=== PATIENT | female | born 1945 | race Caucasian/White ===

== ENCOUNTER 2016-07-14 06:45 | Inpatient (IN) | payer MEDICARE, OTHER ==
[~2016-07-14] VITALS: Ht 157.5 cm; Wt 65.9 kg
[2016-07-14] MEDS ORDERED: IBUP400T22 PO (08:58)
[2016-07-14] MEDS ORDERED: NAPR220C11 PO (08:58)
[2016-07-14 08:59] VITALS: PULSE 66
[2016-07-14 09:08] VITALS: BP 151/77; PULSE 62; RESP 20; O2SAT 98
[2016-07-14] MEDS ORDERED: ATOR20TA65 PO (09:20)
[2016-07-14 10:16] VITALS: PULSE 63
[2016-07-14] MEDS ORDERED: 0.9% Sodium Chloride 1,000 ML IV SCH (10:17)
[2016-07-14] MEDS ORDERED: Polyethylene Glycol (PEG) 17 Gm Powder PO PRN (10:20)
[2016-07-14] MEDS ORDERED: Ondansetron 2 mg/mL 2 mL Inj IVPUSH PRN (10:20)
[2016-07-14] MEDS ORDERED: Atropine 1 mg/10 mL (Code) Syringe IVPUSH PRN (10:20)
[2016-07-14] MEDS ORDERED: Alum-Mag Hydrox-Simeth 30 mL Suspension PO PRN (10:20)
[2016-07-14] MEDS ORDERED: Senna-Docusate 8.6-50 mg Tablet PO PRN (10:20)
[2016-07-14] MEDS ORDERED: Heparin 25K Unit/500mL 0.45 NS 25,000 UNIT in IV Premix 1 EACH IV SCH (11:05)
[2016-07-14] MEDS ORDERED: Heparin 5,000 Unit/mL Inj IVPUSH PRN (11:05)
[2016-07-14 12:00] VITALS: BP 151/77; PULSE 55; RESP 16; O2SAT 97
--- NOTE | 2016-07-14 13:21 | CONS ---
[address] [address] CONSULTATION REPORT PATIENT: JULIO ALBERTO : 1945 MR#: [id number] ADMIT: 07/14/2016 JOB ID: [id number] DATE OF SERVICE: 07/14/2016 CHIEF COMPLAINT: Chest pain. HISTORY OF PRESENT ILLNESS: The patient is a delightful, 70-year-old woman with hyperlipidemia, previous medical management. Unfortunately, she stopped her lipid-lowering medications two weeks ago. In hindsight, for the past year, she has been having exertional chest pressure that lasts a few minutes and is better at rest. She only noticed it when she was climbing hills. Yesterday evening she had discomfort like that all night. It radiated to her back and was associated with nausea. She reported to [facility] emergency department. She had mildly elevated troponin I at 0.[address] depressions that were downsloping in lead V5 and V6 and now was transferred to [facility] for consideration of cardiac catheterization. Cardiology is consulted to assist with management. PAST MEDICAL HISTORY: Hyperlipidemia, currently off medical therapy. SOCIAL HISTORY: The patient does not smoke. She is accompanied today by her children, Emili, Mita, Lily and Stacie. She is physically active. She avoids deep fried foods. She does not smoke. FAMILY HISTORY: Significant for multiple family members with coronary artery disease. ALLERGIES: PENICILLIN. MEDICATIONS: None. REVIEW OF SYSTEMS: No bright red blood per rectum. No hematuria. Chest pain as outlined above. PHYSICAL EXAMINATION: Temperature 36.1, blood pressure 161/77, pulse 62 beats per minute, satting 98% on room air. Well-nourished woman in no apparent distress. Eyes: No scleral icterus. Neck: Supple. No lymphadenopathy. No carotid bruits. Heart: Normal S1, S2. No murmurs, rubs, or gallops. Lungs clear to auscultation. Abdomen: Soft, positive bowel sounds. No hepatosplenomegaly. Skin: Warm, well perfused. No clubbing, cyanosis, or edema. Skin: No rashes or lesions. EKG from [facility] with downsloping ST depressions. Chest x-ray on personal review is normal. Labs at [facility] are pending. CBC and basic metabolic panel at [place] were normal. ASSESSMENT AND PLAN: In summary, this is a delightful woman with chest pain, I suspect coronary artery disease. She has elevated troponin and abnormal EKG. The plan for this patient is to have serial troponins every 6-8 hours until it peaks. Obtain echocardiogram and schedule for her cardiac catheterization. Right now, it does not sound like it is urgent, so will plan to do it on Saturday. Thank you very much for the opportunity to evaluate her. In the interim, will give her aspirin, Lipitor, and heparin drip. She was Plavix loaded at [place]. Thank you very much for the opportunity to participate in her care. LUI
--- NOTE | 2016-07-14 15:15 | DRSVH ---
[facility] [address] [place] [address] Echocardiogram Report Name: JULIO ALBERTO Skip e: 07/14/2016 Height: 62 in Hospital Exam Location: [facility] Weight: 145 lb Gender: Female BSA: 1.7 m2 : 1945 Age: 70 yrs BP: 151/77 mmHg Reason For Study: NSTEMI Ordering Physician: Performed By: Peggy Campuzano Referring Physician: Cande Parker Interpretation Summary Normal sinus rhythm. Normal LV size, wall thickness, wall motion and LV systolic function. EF is 60-65%. Stage I diastolic dysfunction. No valvular abnormalities. Compared to prior study 06/17/2013 no changes have occurred. Procedure: A two-dimensional transthoracic echocardiogram with color flow and Doppler was performed. The study quality was technically adequate. Comparison is made with the echocardiogram of 06/17/2013. The patient was in normal sinus rhythm during the exam. The heart rate ranged between 55-65 bpm during the study. Left Ventricle: The left ventricle is normal in size. There is normal left ventricular wall thickness. The ejection fraction is estimated to be 60-65%. Assessment of diastolic parameters indicates normal left ventricular diastolic function and normal filling pressures. Right Ventricle: The right ventricle is normal in size and function. Atria: The left atrial size is normal. Right atrial size is normal. The interatrial septum is intact with no evidence for an atrial septal defect. Mitral Valve: The mitral valve is normal in structure and function. There is trace mitral regurgitation. Aortic Valve: The aortic valve is normal in structure and function. No aortic regurgitation is present. Tricuspid Valve: The tricuspid valve is normal in structure and function. No tricuspid regurgitation. Pulmonic Valve: The pulmonic valve is not well visualized. There is a trace or physiologic amount of pulmonic regurgitation. Great Vessels: The aortic root is normal size. The dimensions of the ascending aorta are normal. The aortic arch is normal in size. The IVC is of normal diameter and collapses greater than 50% with a sniff. This suggests a low right atrial pressure of 3 mm Hg. Pericardium/ Pleura There is no pericardial effusion. There is no pleural effusion. MMode/2D Measurements & Calculations LVIDd: 3.9 cm LA dimension: 2.9 cm RA long axis LVOT diam: 2.0 cm LVIDs: 2.6 cm Ao root diam FS: 32.7 % LA A2 area: 13.4 cm RA area EPSS: 0.13 cm LA A4 area: 15.1 cm Aortic Jxn: 2.4 cm IVSd: 1.1 cm LA length (vol) : 12.0 cm asc Aorta Diam LVPWd: 0.92 cm RA vol LA vol: 33.6 ml : 29.9 ml Ao Arch Diam (Prox LA vol index RA Trans): 2.5 cm : 17.9 mm2 IVC diam: 0.92 cm LV llamas. diameter/BSA LV sys. diameter/BSA RVD1 (basal) RVD2 (mid): 2.1 cm (cm/m^2): 2.3 (cm/m^2): 1.6 Doppler Measurements & Calculations Ao V2 max MV E max orion MV E/A: 0.95 PA V2 max : 126.1 cm/sec : 73.6 cm/sec Med Peak E' Orion : 74.0 cm/sec Ao max PG MV A max orion PA mean PG : 6.4 mmHg : 77.3 cm/sec E/E' med: 8.2 Ao mean PG MV P1/2t: 72.7 msec Lat Peak E' Orion PA Accel Time : 0.11 sec LVOT Max Orion E/E' lat: 7.6 : 95.7 cm/sec E/e' average: 7.9 DARYL(I,D): 2.3 cm sev ratio MV dec time MV P1/2t max orion Ao V2 mean LV V1 max PG : 0.25 sec : 86.7 cm/sec MVA(P1/2t): 3.0 cm2 Ao V2 VTI: 28.1 cm LV V1 VTI DARYL(V,D): 2.3 cm2 : 21.3 cm PA V2 mean DARYL indexed to BSA : 51.9 cm/sec (cm^2/m^2): 1.4 Reading Physician:03:14 PM
[2016-07-14] MEDS: Sodium Chloride LOK Flush 10 mL Syringe IVFLUSH SCH (16:30)
--- NOTE | 2016-07-14 16:30 | PCM.HPMED ---
Subjective Date of Service July 14, 2016 Primary Provider: Admitting Physician: Juan Hoffman MD Primary Care Physician: Cande Dee LPN, at [facility] Attending Physician: Juan Hoffman MD Admit Status: Direct Admit ([facility]) Chief Complaint: Chest pain History of Present Illness: Becky Woo is an otherwise very healthy 70-year-old woman who presented yesterday to [facility] in [place] with chest pain that it started 9 PM the night before lasted all night with nausea. She describes the pain as an aching in the lower part of her sternum that radiates to her neck on both sides. It was not relieved with nitroglycerin given by EMS but was relieved with fentanyl. The nitroglycerin did cause her to become hypotensive fentanyl was given again in transit from [facility]. She was transferred to [facility] because of an initial elevated troponin and an EKG suggestive of lateral myocardial infarction. She did have an incidence of chest pain on July 08 associated with nausea and vomiting but this self resolved within a couple hours and she did not seek treatment. Other than that she has never had any chest pain shortness of breath or history of cardiac problems other than hyperlipidemia, and that hyperlipidemia had improved to the point where 3 weeks ago her primary care doctor took her off of her statin medication to see if it needed to be continued. She does have a strong family history of cardiac disease with her father having his first heart attack at age 57 and followed by CABG and placement of a pacemaker but he is still alive and fairly healthy at age 90. She does not smoke, drinks only occasionally, no drug history, active and healthy with good family support. Review of Systems: Complete review of systems is otherwise negative except as noted above in the history of present illness Allergies Coded Allergies: Penicillins (Verified Allergy, Intermediate, Rash, 07/14/16) Home Medications None other than ibuprofen occasionally for neck pain Exam Vital Signs & I/O Vital Sign- Last 8 Hours Date Time Temp Pulse Resp B/P Pulse Ox O2 Delivery O2 Flow Rate FiO2 07/16/16 11:17 36.5 65 18 127/71 97 Room Air 07/16/16 10:30 56 16 109/53 07/16/16 10:30 56 16 109/53 97 Room Air 07/16/16 10:00 54 16 114/54 07/16/16 10:00 59 16 114/54 97 Room Air 07/16/16 09:45 60 16 107/55 07/16/16 09:45 60 16 107/55 97 Room Air 07/16/16 09:30 59 55 107/55 07/16/16 09:30 67 20 107/55 97 Room Air 07/16/16 09:27 68 07/16/16 09:20 67 20 115/61 97 Room Air 07/16/16 09:20 59 15 115/61 07/16/16 09:15 60 17 108/54 97 Room Air 07/16/16 09:15 60 17 108/54 07/16/16 09:10 67 20 115/61 97 Room Air 07/16/16 09:10 67 20 115/61 Intake and Output- Last 8 Hour 07/16/16 Cumulative From/Thru 07:00 07/14/16 09:00 - 07/16/16 05:05 Intake Total 0 ml 2326 ml Output Total 600 ml 4350 ml Balance -600 ml -2024 ml Intake Oral 1960 ml IV Total 0 ml 366 ml Output Urine Total 3200 ml Urine/Stool Mix 600 ml 600 ml Emesis 550 ml # Voids 0 0 Lab & Micro Results Laboratory Tests Test 07/16/16 03:40 White Blood Count 6.4th/mm3 (3.8-10.1) Red Blood Count 4.87mil/mm3 (3.90-5.20) Hemoglobin 14.2g/dL (12.0-15.6) Hematocrit 43.1% (35.0-46.0) Mean Corpuscular Volume 88.5fL (81-100) Mean Corpuscular Hemoglobin 29.2pg (27.0-35.0) Mean Corpuscular Hemoglobin Concent 32.9% (32.0-37.0) Red Cell Distribution Width 14.2% (12.3-15.4) Platelet Count 304bil/L (150-400) Neutrophils (%) (Auto) 58.0% (40-74) Lymphocytes (%) (Auto) 31.0% (14-46) Monocytes (%) (Auto) 8.5% (4-12) Eosinophils (%) (Auto) 2.0% (0-5) Basophils (%) (Auto) 0.3% (0-3) Prothrombin Time 9.8sec (8.1-12.5) Prothromb Time International Ratio 0.92ratio Activated Partial Thromboplast Time 26.7sec (22.8-33.0) Result Diagram: 07/16/16 0340 07/15/16 0400 Review of Systems: Constitutional: Negative, except as otherwise mentioned in the history above. Ophthalmologic: Negative, except as otherwise mentioned in the history above. Cardiovascular: Negative, except as otherwise mentioned in the history above. Respiratory: Negative, except as otherwise mentioned in the history above. Gastrointestinal: Negative, except as otherwise mentioned in the history above. Genitourinary: Negative, except as otherwise mentioned in the history above. Musculoskeletal: Negative, except as otherwise mentioned in the history above. Neurological: Negative, except as otherwise mentioned in the history above. Psychiatric: Negative, except as otherwise mentioned in the history above. Hematologic/Lymphatic: Negative, except as otherwise mentioned in the history above. Allergic/Immunologic: Negative, except as otherwise mentioned in the history above. PMH Hyperlipidemia Surgical History None Family History Her father is alive at age 90 with history of ME at age 57, status post CABG, status post ICD, prediabetes Her mother is also alive and well at age 90 with hypertension and prediabetes only Social History Hx Alcohol Use: No Hx Substance Use: Yes (marijuana occassionally (three times/year)) Hx Tobacco Use: No Smoking Status: Never Smoker Living Arrangement: with Family Exam Vital Signs Vital Sign - Last Date Time Temp Pulse Resp B/P Pulse Ox O2 Delivery O2 Flow Rate FiO2 07/14/16 12:00 36.7 55 16 151/77 97 Room Air Exam General: Alert, Oriented X3, Cooperative, No Acute Distress Head: Normocephalic, atraumatic. External ears normal. Eyes: PERRLA, EOMI. Anicteric sclerae. Mouth: Mouth Normal, Mucous Membranes Moist/[place] Neck: Neck supple with full range of motion. Chest & Lungs: Tenderness to palpation in the sternum inferior midline. Clear to auscultation bilaterally with no crackles, wheezes, or rhonchi. Cardiovascular: Regular Rate/Rhythm, Normal S1, Normal S2, No Murmurs/Rubs/ Gallops Abdomen: Non-tender, Non-distended, No masses, Normoactive bowel tones, Soft Musculoskeletal: Normal Range of Motion Extremities: No cyanosis/clubbing/edema bilaterally Neurological: Grossly Neurologically Intact, Cranial Nerves 2-12 Intact, Normal Speech Lab and Diagnostics Labs Laboratory Tests Test 07/14/16 10:50 Activated Partial Thromboplast Time 50.9sec (22.8-33.0) Magnesium Level 2.1mg/dL (1.6-2.6) Troponin T 0.067ug/L (0.0-0.011) Triglycerides Level 64mg/dL (0-149) Cholesterol Level 280mg/dL (100-199) LDL Cholesterol, Calculated 170.200mg/dL (0-99) VLDL Cholesterol 12.800mg/dL HDL Cholesterol 97mg/dL (>39) Cholesterol/HDL Ratio 2.89 (0.0-4.4) Result Diagram: 07/16/16 0340 07/15/16 0400 12-lead ECG EKG from [facility] with downsloping ST depressions in the lateral leads EKG here taken after increased chest pain shows sinus bradycardia with no ST elevations or depressions or T-wave abnormalities Cardiac Echo Impressions 07/14/16 Normal sinus rhythm. Normal LV size, wall thickness, wall motion and LV systolic function. EF is 60-65%. Stage I diastolic dysfunction. No valvular abnormalities. Compared to prior study 06/17/2013 no changes have occurred. Assessment & Plan Becky Woo is an otherwise very healthy 70-year-old woman who presented yesterday to [facility] in [place] with chest pain that it started 9 PM the night before lasted all night with nausea. She describes the pain as an aching in the lower part of her sternum that radiates to her neck on both sides. It was not relieved with nitroglycerin given by EMS but was relieved with fentanyl. Chest pain with acute NSTEMI, present on admission. Relieved with opioids EKG at [facility] revealed borderline sloping ST depressions in the lateral leads V5 and 6, EKG here is sinus bradycardia with no ST changes -Cardiology consult is much appreciated and echocardiogram is already complete. Per Dr. Pandya's recommendations the patient will be scheduled for cardiac catheterization on Saturday as this is nonemergent -Echocardiogram:Normal sinus rhythm. Normal LV size, wall thickness, wall motion and LV systolic function. EF is 60-65%. Stage I diastolic dysfunction. No valvular abnormalities. Compared to prior study 06/17/2013 no changes have occurred. -Nitroglycerin caused hypotension and headache -Serial troponins ordered, first value is 0.067 -Cardiac And drip per protocol -Aspirin 81 mg given at [facility] -Morphine 5 mg IV when necessary for chest pain -Atorvastatin 40 mg daily Chronic neck pain, present on admission. Intermittent -Patient treats that at home with ibuprofen, every third day she reports. We will not make NSAIDs available while patient is on heparin drip. -Tylenol available every 4 hours as needed Hyperlipidemia, status unknown, other evaluation -As above, the patient stopped taking her statin medication 3 weeks ago on the advice of her doctor who apparently thought she might be ready to not be on that medication any longer -Lipid panel ordered for the morning -Atorvastatin ordered per cardiac protocol PRN medications available for nausea, heartburn, constipation: Ondansetron, Maalox, Senna, Miralax Patient is admitted under inpatient status with expected length of stay greater than 2 midnights due to severity of presenting symptoms, risk of adverse event, and complexity of treatment plan. Pain Evaluation: Adequate Pain Control GI Prophylaxis: Not indicated VTE Prophylaxis: Other (heparin drip) Resuscitation Status: CPR: Attempt Resuscitation Attending Statement The patient was seen and examined together with Resident/House-Staff on 07/14/16 and I agree with the history, exam and plan as outlined in the note above. Emigdio Espinoza DO July 14, 2016 16:30 Sg [place] July 16, 2016 16:54
[2016-07-14 16:39] VITALS: BP 109/77; PULSE 68; RESP 18; O2SAT 96
[2016-07-14 21:23] VITALS: BP 119/74; PULSE 72; RESP 20; O2SAT 97
[2016-07-15] VITALS (9 sets, daily range): BP systolic 110–149; BP diastolic 67–76; PULSE 66–77; RESP 16–20; O2SAT 96–99
[2016-07-15] MEDS: Sodium Chloride LOK Flush 10 mL Syringe IVFLUSH SCH ×4 (00:30→19:46)
[2016-07-15 04:24] LABS: BASOPHILS % (AUTO) 0.2 % (0-3); EOSINOPHILS % (AUTO) 0.6 % (0-5); MONOCYTES % (AUTO) 5.3 % (4-12); Mean Corpuscular Hemoglobin 29.3 pg (27.0-35.0); Mean Corpuscular Volume 88.2 fL (81-100); NEUTROPHILS % (AUTO) 71.2 % (40-74); Platelet Count 339 bil/L (150-400)
[2016-07-15 06:50] LABS: Bilirubin, Direct 0.2 mg/dL (0.0-0.3)
[2016-07-15 06:56] LABS: TROPONIN T 0.057 ug/L (0.0-0.011)
--- NOTE | 2016-07-15 15:57 | PCM.PNMED ---
Subjective Date of Service July 15, 2016 Subjective reports severe headache with nausea and vomiting last night. reports mild frontal headache this morning. no further nausea. Denies any chest pain. no other new issues/complaints. Exam Vital Signs Vital Sign - Last Date Time Temp Pulse Resp B/P Pulse Ox O2 Delivery O2 Flow Rate FiO2 07/15/16 12:47 36.4 69 20 146/76 99 07/15/16 08:30 Room Air Intake and Output 07/14/16 07/14/16 07/15/16 Cumulative From/Thru 15:00 23:00 07:00 07/14/16 09:00 - 07/14/16 18:30 Intake Total 360 ml 360 ml Output Total 600 ml 600 ml Balance -240 ml -240 ml Intake Oral 360 ml 360 ml Output Urine Total 600 ml 600 ml General: Alert, Oriented X3, Cooperative, No Acute Distress Head: Normal Eyes: PERRLA, EOMI, Scleral Anicteric Nose: Mucous Membr Moist/[place] Mouth: Mucous Membr Moist/[place] Neck: Supple Chest & Lungs: Chest Wall Normal, Clear to auscultation & percussion Cardiovascular: Regular Rate/Rhythm Pulses: NL carotid, radial, femoral, DP, PT Abdomen: Non-tender, Non-distended, Normoactive bowel tones, Soft Extremities: No cyanosis/clubbing/edma bilat Neurological: Grossly Neurologically Intact, Cranial Nerves 2-12 Intact, Normal Speech, Strength Normal / ext IVs and Medications Medications Reviewed: Medications were reviewed in detail Lab and Diagnostics Result Diagram: 07/15/16 0833 07/15/16 0400 12-lead ECG EKG from [facility] with downsloping ST depressions in the lateral leads EKG here taken after increased chest pain shows sinus bradycardia with no ST elevations or depressions or T-wave abnormalities Cardiac Echo Impressions 07/14/16 Normal sinus rhythm. Normal LV size, wall thickness, wall motion and LV systolic function. EF is 60-65%. Stage I diastolic dysfunction. No valvular abnormalities. Compared to prior study 06/17/2013 no changes have occurred. Assessment & Plan 70-year-old female presenting from [facility] in [place] after presenting with chest pain and noted to have elevated Troponin. # Acute NSTEMI. Present on admission. Ongoing. - Appreciate cardiology consult. Will followup with recommendations. - Tentative plan for cardiac cath on Saturday - Echo with EF 60-65% and with significant change compared to 2014 - On heparin drip per cardiology recommendation - Continue with ASA and Statin # Acute headache. Present on admission. Ongoing but improving - Neuro exam otherwise non-focal - ? if due to medication - Continue with supportive care # Chronic neck pain, present on admission. Intermittent - Continue with supportive care # Hyperlipidemia, likely chronic. - Continue with Lipitor Dispo: 1-2 days pending cardiac cath and cardiology recs GI Prophylaxis: Not indicated VTE Prophylaxis: Other (heparin drip) Resuscitation Status: CPR: Attempt Resuscitation Sg [place] July 15, 2016 15:57 GI Prophylaxis: Not indicated VTE Prophylaxis: Other (heparin drip) Resuscitation Status: CPR: Attempt Resuscitation Sg [place] July 15, 2016 15:57
--- NOTE | 2016-07-15 21:49 | PROG NOTE ---
[address] [address] PROGRESS NOTE PATIENT: JULIO ALBERTO : 1945 MR#: [id number] ADMIT: 07/14/2016 JOB ID: [id number] DATE: 07/15/2016 SUBJECTIVE: Patient's RN noted significant bleeding from her finger pokes. OBJECTIVE: Vital signs: She is afebrile. Temperature is 36.6, blood pressure 110/67, pulse 68 up to 77, no events on telemetry other than a 4-second pause while she was vomiting last night at 10 p.m. She had a migraine headache at the time. Well-nourished woman, no apparent distress. Eyes: No scleral icterus. Heart: Normal S1, S2. No murmurs. Lungs: Clear to auscultation anteriorly. CURRENT MEDICATION IN THE HOSPITAL: 1. Lipitor 40. 2. Aspirin 81 mg daily. 3. Heparin drip was previously on but has been on hold due to profuse bleeding. 4. Beta-jillian was on hold briefly due to that pause. Labs are reviewed. ASSESSMENT AND PLAN: This is a delightful 70-year-old woman with non-STEMI. She had chest pain, nausea to the back, and in hind site, has had progressive chest pressure when climbing up hills. I recommend cardiac catheterization. Consent obtained. All questions answered. Thank you very much for the opportunity to evaluate this patient.
[2016-07-16] VITALS (11 sets, daily range): BP systolic 107–138; BP diastolic 53–71; PULSE 54–78; RESP 15–55; O2SAT 97
[2016-07-16 03:49] LABS: BASOPHILS % (AUTO) 0.3 % (0-3); MONOCYTES % (AUTO) 8.5 % (4-12); Mean Corpuscular Hemoglobin 29.2 pg (27.0-35.0); Mean Corpuscular Volume 88.5 fL (81-100); Platelet Count 304 bil/L (150-400)
[2016-07-16 04:09] LABS: INR 0.92 ratio
[2016-07-16] MEDS ORDERED: 0.9% Sodium Chloride 1,000 ML IV ONE (04:42)
[2016-07-16] MEDS: Sodium Chloride LOK Flush 10 mL Syringe IVFLUSH SCH (07:40)
[2016-07-16] MEDS ORDERED: Heparin 5,000 Units/500 mL NS Premix IV ONE (07:43)
[2016-07-16] MEDS ORDERED: Heparin 1,000 Units/500 mL NS Premix IV ONE (07:43)
[2016-07-16] MEDS ORDERED: fentaNYL-PF 50 mCg/mL 2 mL Inj ONE (08:24)
[2016-07-16] MEDS ORDERED: Sodium Chloride LOK Flush 10 mL Syringe IVFLUSH SCH (08:30)
[2016-07-16] MEDS ORDERED: Nitroglycerin 50,000 mcg/250 mL D5W Premix IV ONE (08:43)
--- NOTE | 2016-07-16 09:36 | CS94 ---
[address] [address] DIAGNOSTIC CARDIAC CATHETERIZATION PATIENT: JULIO ALBERTO : 1945 MR#: [id number] ADMIT: 07/14/2016 JOB ID: [id number] SERVICE DATE: 07/16/2016 CHIEF COMPLAINT: Elevated troponin, non-STEMI. PROCEDURES PERFORMED: 1. Left heart catheterization-selective coronary angiograms. 2. Right common femoral artery vascular access under ultrasound guidance. 3. Ventriculogram. 4. Hemostasis via [employer]. PROCEDURE: Following informed consent, the patient was prepped and draped in the usual sterile fashion. A 6-Palestinian sheath was placed in the right common femoral artery. Sheath placement was confirmed via femoral angiogram. JL4 and JR4 catheters were used to engage the left main and right coronary artery ostia, respectively. Due to dampening on engagement, I switched out my JR4 catheter to a 5-Palestinian catheter. Hand injection craniocaudal angulation was used to obtain selective coronary angiograms. All exchanges were performed over a wire. I felt there was catheter mediated spasm when I engaged the right coronary artery. Therefore, I administered 300 mcg of intracoronary nitroglycerin and repeated angiograms, which showed indeed my hypothesis was correct and there is no evidence of true atherosclerotic plaquing there. A pigtail was advanced in the left ventricle. Left ventricular end-diastolic pressure was recorded. At this point in time, ventriculogram was performed. Post ventriculogram, end-diastolic pressure was recorded. Pigtail was withdrawn from the left ventricle into the aorta. Hemostasis was obtained. No complications immediately postprocedure. FINDINGS: HEMODYNAMICS: The patient was in normal sinus rhythm during the study. Heart rate 69 beats per minute. Blood pressure at the beginning of the study, 138/59. As part of nitroglycerin affect and as part of sedation, blood pressure came down to 100 mmHg systolic. There is no evidence of aortic stenosis based on pullback, and left ventricular end-diastolic pressure is 8 mmHg. FEMORAL ACCESS: Right common femoral artery demonstrates high bifurcation at the 50th percentile dain of the femoral head. The sheath enters the right common femoral artery just at the bifurcation. There is no evidence of contrast extravasation or dissection. Visualized portions of the common femoral artery, superficial femoral artery and profunda show no disease. CORONARY ANGIOGRAMS: Left main is a normal vessel, gives rise to LAD and circumflex. No obstructive lesions are seen. There is excellent blow-back and no dampening on engagement. Circumflex is a normal vessel. It gives rise to an extremely large branching OM-1 and then travels in the AV groove as a diminutive vessel. No obstructive lesions are seen. Left anterior descending is a normal vessel. It wraps around the apex. It gives rise to a very small first diagonal branch, a large 2nd diagonal branch and multiple septal perforators. There are no obstructive lesions visualized. The right coronary artery dampened on engagement but upon better visualization and intracoronary nitro, there is no ostial right coronary artery disease. It gives rise to PDA and posterolateral branch. No obstructive lesions whatsoever are seen. VENTRICULOGRAM: Complicated by some ectopy, but there is normal wall motion and LV systolic function. EF is 60-65%. IMPRESSION: 1. Low risk cardiac catheterization. 2. No evidence of obstructive disease. 3. Normal wall motion and left ventricular systolic function. 4. Normal filling pressure. PATIENT PLAN: Continue efforts at primary prevention including aspirin and statin therapy, with goal LDL less than 100. Recommend medications to reduce the risk of vasospasm and microvascular dysfunction. I might put her on a low-dose beta jillian, Toprol-XL 25 mg daily, and see how she tolerates it. If she develops bradycardia in the future, she would benefit from calcium channel jillian. Thank you very much for the opportunity to evaluate her.
--- NOTE | 2016-07-16 09:38 | PROG NOTE ---
[address] [address] PROGRESS NOTE PATIENT: JULIO ALBERTO : 1945 MR#: [id number] ADMIT: 07/14/2016 JOB ID: [id number] DATE: 07/16/2016 CHIEF COMPLAINT: Chest pain. SUBJECTIVE: Overnight, the patient had no chest pain recurrence. This morning, she underwent cardiac catheterization, that showed no evidence of obstructive disease, but significant ostial vasospasm of the right coronary artery when I tried to engage it with the catheter. Upon further inspection of the vessel including downsizing the catheter diameter and giving intracoronary nitroglycerin, the ostium of the right coronary artery showed no hemodynamically significant disease. She tolerated the procedure well. PHYSICAL EXAMINATION: Vital signs: Temperature 36.4, blood pressure 138/67, pulse 97%, on room air. Well-nourished woman in no apparent distress. Eyes: No scleral icterus. Heart: Normal S1, S2. No murmurs. Lungs: Clear to auscultation anteriorly. Abdomen: Soft. Positive bowel sounds. Extremities: No clubbing, cyanosis, or edema. Skin: No rashes or lesions. PLAN: The plan for this patient is to be discharged home today on aspirin 81 mg daily, Lipitor 40 mg daily, and amlodipine, we can send her home on 5 mg daily. I think it will be a good fit for her because it will help with migraine prevention and vasospasm. I will start her off on 5 mg daily, and I recommend follow up in the Cardiology Clinic with me in about a month. Thank you very much for the opportunity to evaluate this patient.
--- NOTE | 2016-07-16 11:23 | PCM.DIMED ---
Discharge Instructions Date of Service July 16, 2016 Dates of Hospitalization July 14, 2016 at 08:43 Discharge Diagnosis Discharge Diagnosis NSTEMI Medication Instructions Daily Medications: Aspirin 81mg PO daily Lipitor 40mg PO daily Amlodipine 40mg PO daily Test Results Laboratory Tests Test 07/15/16 12:08 07/16/16 03:40 Activated Partial Thromboplast Time 53.9sec (22.8-33.0) 26.7sec (22.8-33.0) White Blood Count 6.4th/mm3 (3.8-10.1) Red Blood Count 4.87mil/mm3 (3.90-5.20) Hemoglobin 14.2g/dL (12.0-15.6) Hematocrit 43.1% (35.0-46.0) Mean Corpuscular Volume 88.5fL (81-100) Mean Corpuscular Hemoglobin 29.2pg (27.0-35.0) Mean Corpuscular Hemoglobin Concent 32.9% (32.0-37.0) Red Cell Distribution Width 14.2% (12.3-15.4) Platelet Count 304bil/L (150-400) Neutrophils (%) (Auto) 58.0% (40-74) Lymphocytes (%) (Auto) 31.0% (14-46) Monocytes (%) (Auto) 8.5% (4-12) Eosinophils (%) (Auto) 2.0% (0-5) Basophils (%) (Auto) 0.3% (0-3) Prothrombin Time 9.8sec (8.1-12.5) Prothromb Time International Ratio 0.92ratio Diet Heart Healthy Activity No restrictions Call your provider Fever or Chills, Shortness of breath, Chest pain, Weakness (unilateral) Patient Instructions Your medications on discharge from Dr Dave, the sulfide head operator are: Aspirin 81mg PO daily Lipitor 40mg PO daily Amlodipine 40mg PO daily The aspirin is to avoid thromboembolism, Lipitor lowers cholesterol and stabilizes any atherosclerotic plaques that are already present so they don't break off to form clots, Amlodipine will reduce the chance of vasospasm which may have been the main cause of your chest pain and help prevent headaches. Eat a heart healthy diet, exercise daily, and follow up with Dr Pandya in one month. See Cande Dee, the nurse you have been seeing, next week. Follow-up plan Cardiology in one month, Dr Pandya. Follow-up Provider: Horace Amin MD Follow-up with PCP in: 1 week Emigdio Espinoza DO July 16, 2016 11:23
[2016-07-16] MEDS ORDERED: AMLO5TAB2 PO (11:26)
[2016-07-16] MEDS ORDERED: LIP40 PO (11:26)
[2016-07-16] MEDS ORDERED: ASPI-973 PO (11:26)
--- NOTE | 2016-07-16 11:35 | PCM.DC.MED ---
Discharge Summary Date of Service July 16, 2016 Dates of Hospitalization Date of Hospital Admission July 14, 2016 at 08:43 Date of Discharge: July 16, 2016 Providers: Admitting Physician: Juan Hoffman MD Primary Care Physician: Emma Attending Physician: Juan Hoffman MD Diagnosis at Time of Discharge Diagnosis at Time of Discharge NSTEMI Consultations Mojgan Pandya MD, Cardiology Procedures ECG 12 Lead EKG from [facility] with downsloping ST depressions in the lateral leads EKG here taken after increased chest pain shows sinus bradycardia with no ST elevations or depressions or T-wave abnormalities Cardiac Echo Impression 07/14/16 Normal sinus rhythm. Normal LV size, wall thickness, wall motion and LV systolic function. EF is 60-65%. Stage I diastolic dysfunction. No valvular abnormalities. Compared to prior study 06/17/2013 no changes have occurred. Invasive Procedures "...Cardiac catheterization, that showed no evidence of obstructive disease, but significant ostial vasospasm of the right coronary artery when I tried to engage it with the catheter. Upon further inspection of the vessel including downsizing the catheter diameter and giving intracoronary nitroglycerin, the ostium of the right coronary artery showed no hemodynamically significant disease. She tolerated the procedure well." -Dr Pandya Brief History Becky Woo is an otherwise very healthy 70-year-old woman who presented yesterday to [facility] in [place] with chest pain that it started 9 PM the night before lasted all night with nausea. She describes the pain as an aching in the lower part of her sternum that radiates to her neck on both sides. It was not relieved with nitroglycerin given by EMS but was relieved with fentanyl. The nitroglycerin did cause her to become hypotensive fentanyl was given again in transit from [facility]. She was transferred to [facility] because of an initial elevated troponin and an EKG suggestive of lateral myocardial infarction. She did have an incidence of chest pain on July 08 associated with nausea and vomiting but this self resolved within a couple hours and she did not seek treatment. Other than that she has never had any chest pain shortness of breath or history of cardiac problems other than hyperlipidemia, and that hyperlipidemia had improved to the point where 3 weeks ago her primary care doctor took her off of her statin medication to see if it needed to be continued. She does have a strong family history of cardiac disease with her father having his first heart attack at age 57 and followed by CABG and placement of a pacemaker but he is still alive and fairly healthy at age 90. She does not smoke, drinks only occasionally, no drug history, active and healthy with good family support. Hospital Course 70-year-old female presenting from [facility] in [place] after presenting with chest pain and noted to have elevated Troponin. Acute NSTEMI. Present on admission. Resolved. - Appreciate Dr. Pandya from cardiology's consult. Will followup with recommendations. - Cardiac catheterization Saturday morning with results described above - Echo with EF 60-65% and with significant change compared to 2013 - On heparin drip per cardiology until stopped for procedure -Dr. Pandya recommends discharge with aspirin 81 mg by mouth daily, Lipitor 40 mg by mouth daily, amlodipine 5 mg by mouth daily Acute headache. Present on admission. Ongoing but improving - Neuro exam otherwise non-focal, possibly secondary to administration of nitroglycerin -Improved with acetaminophen, no NSAIDs given in anticipation of cardiac catheterization - Continue with supportive care Chronic neck pain, present on admission. Intermittent - Continue with supportive care Hyperlipidemia, likely chronic. -Lipitor 20 mg had been discontinued 3 weeks prior to this episode -As above discharge with Lipitor 40 mg by mouth daily Dispo: Home Exam Vital Signs (Last) Date Time Temp Pulse Resp B/P Pulse Ox O2 Delivery O2 Flow Rate FiO2 07/16/16 11:17 36.5 65 18 127/71 97 Room Air Exam General: Alert, Oriented X3, Cooperative, No Acute Distress Head: Normocephalic, atraumatic. External ears normal. Eyes: PERRLA, EOMI. Anicteric sclerae. Mouth: Mouth Normal, Mucous Membranes Moist/[place] Neck: Neck supple with full range of motion. Chest & Lungs: Tenderness to palpation in the sternum inferior midline. Clear to auscultation bilaterally with no crackles, wheezes, or rhonchi. Cardiovascular: Regular Rate/Rhythm, Normal S1, Normal S2, No Murmurs/Rubs/ Gallops Abdomen: Non-tender, Non-distended, No masses, Normoactive bowel tones, Soft Musculoskeletal: Normal Range of Motion Extremities: No cyanosis/clubbing/edema bilaterally Neurological: Grossly Neurologically Intact, Cranial Nerves 2-12 Intact, Normal Speech Test 07/14/16 10:50 07/14/16 17:00 07/15/16 04:00 07/16/16 03:40 Magnesium Level 2.1mg/dL (1.6-2.6) Hold Urine Received (Received) Sodium Level 138mEq/L (134-144) Potassium Level 4.1mEq/L (3.5-5.2) Chloride Level 99mEq/L (97-108) Carbon Dioxide Level 27mmol/L (18-29) Blood Urea Nitrogen 12mg/dL (8-27) Creatinine 0.57mg/dL (0.57-1.00) Estimat Glomerular Filtration Rate 151mL/min (>59) Glucose Level 121mg/dL (60-99) Calcium Level 9.6mg/dL (8.5-10.1) Total Bilirubin 0.8mg/dL (0.0-1.2) Direct Bilirubin 0.2mg/dL (0.0-0.3) Aspartate Amino Transf (AST/SGOT) 35U/L (0-50) Alanine Aminotransferase (ALT/SGPT) 75U/L (0-32) Alkaline Phosphatase 122U/L (25-165) Troponin T 0.057ug/L (0.0-0.011) Total Protein 7.2g/dL (6.4-8.4) Albumin 4.3g/dL (3.4-5.0) Triglycerides Level 69mg/dL (0-149) Cholesterol Level 286mg/dL (100-199) LDL Cholesterol, Calculated 173.200mg/dL (0-99) VLDL Cholesterol 13.800mg/dL HDL Cholesterol 99mg/dL (>39) Cholesterol/HDL Ratio 2.89 (0.0-4.4) White Blood Count 6.4th/mm3 (3.8-10.1) Red Blood Count 4.87mil/mm3 (3.90-5.20) Hemoglobin 14.2g/dL (12.0-15.6) Hematocrit 43.1% (35.0-46.0) Mean Corpuscular Volume 88.5fL (81-100) Mean Corpuscular Hemoglobin 29.2pg (27.0-35.0) Mean Corpuscular Hemoglobin Concent 32.9% (32.0-37.0) Red Cell Distribution Width 14.2% (12.3-15.4) Platelet Count 304bil/L (150-400) Neutrophils (%) (Auto) 58.0% (40-74) Lymphocytes (%) (Auto) 31.0% (14-46) Monocytes (%) (Auto) 8.5% (4-12) Eosinophils (%) (Auto) 2.0% (0-5) Basophils (%) (Auto) 0.3% (0-3) Prothrombin Time 9.8sec (8.1-12.5) Prothromb Time International Ratio 0.92ratio Activated Partial Thromboplast Time 26.7sec (22.8-33.0) Discharge Medications Discharge Medications Amlodipine (Amlodipine) 5 Mg Tablet 5 MG PO DAILY Prescribed by: EMIGDIO ESPINOZA DO Aspirin (Aspirin) 81 Mg Tablet 81 MG PO DAILY Prescribed by: EMIGDIO ESPINOZA DO Atorvastatin (Lipitor) 40 Mg Tablet 40 MG PO DAILY Prescribed by: EMIGDIO ESPINOZA DO As needed Ibuprofen (Ibuprofen) 400 Mg Tablet 400 MG PO QID PRN PRN For Pain (Reported) Naproxen Sodium (Aleve) 220 Mg Capsule 220 MG PO PRN For Pain (Reported) Additional med instructions Daily Medications: Aspirin 81mg PO daily Lipitor 40mg PO daily Amlodipine 40mg PO daily Followup Plan Disposition: Home Follow-up plan Cardiology in one month, Dr Pandya. Follow-up the primary care this week Discharge Diet: Heart Healthy Discharge Activity: No restrictions Patient Instructions Your medications on discharge from Dr Dave, the voice data communications engineer are: Aspirin 81mg PO daily Lipitor 40mg PO daily Amlodipine 40mg PO daily The aspirin is to avoid thromboembolism, Lipitor lowers cholesterol and stabilizes any atherosclerotic plaques that are already present so they don't break off to form clots, Amlodipine will reduce the chance of vasospasm which may have been the main cause of your chest pain and help prevent headaches. Eat a heart healthy diet, exercise daily, and follow up with Dr Pandya in one month. See Cande Dee, the nurse you have been seeing, next week. Follow-up with PCP in: 1 week Time spent 30 min Attending Statement The patient was seen and examined together with Resident/House-staff on 07/16/16 and I agree with the history, exam and plan as outlined in the note above. Emigdio Espinoza DO July 16, 2016 11:35 Sg [place] July 20, 2016 16:50
--- NOTE | 2016-07-16 20:16 | PCM.DC.MED ---
Discharge Summary Date of Service July 16, 2016 Dates of Hospitalization Date of Hospital Admission July 14, 2016 at 08:43 Date of Discharge: July 16, 2016 Providers: Admitting Physician: Juan Hoffman MD Primary Care Physician: Emma Attending Physician: Juan Hoffman MD Diagnosis at Time of Discharge Diagnosis at Time of Discharge NSTEMI Consultations Mojgan Pandya MD, Cardiology Procedures ECG 12 Lead EKG from [facility] with downsloping ST depressions in the lateral leads EKG here taken after increased chest pain shows sinus bradycardia with no ST elevations or depressions or T-wave abnormalities Cardiac Echo Impression 07/14/16 Normal sinus rhythm. Normal LV size, wall thickness, wall motion and LV systolic function. EF is 60-65%. Stage I diastolic dysfunction. No valvular abnormalities. Compared to prior study 06/17/2013 no changes have occurred. Invasive Procedures Cardiac Catheterization, 07/16/16 IMPRESSION: 1. Low risk cardiac catheterization. 2. No evidence of obstructive disease. 3. Normal wall motion and left ventricular systolic function. 4. Normal filling pressure. PATIENT PLAN: Continue efforts at primary prevention including aspirin and statin therapy, with goal LDL less than 100. Brief History Becky Woo is an otherwise very healthy 70-year-old woman who presented yesterday to [facility] in [place] with chest pain that it started 9 PM the night before lasted all night with nausea. She describes the pain as an aching in the lower part of her sternum that radiates to her neck on both sides. It was not relieved with nitroglycerin given by EMS but was relieved with fentanyl. The nitroglycerin did cause her to become hypotensive fentanyl was given again in transit from [facility]. She was transferred to [facility] because of an initial elevated troponin and an EKG suggestive of lateral myocardial infarction. She did have an incidence of chest pain on July 08 associated with nausea and vomiting but this self resolved within a couple hours and she did not seek treatment. Other than that she has never had any chest pain shortness of breath or history of cardiac problems other than hyperlipidemia, and that hyperlipidemia had improved to the point where 3 weeks ago her primary care doctor took her off of her statin medication to see if it needed to be continued. She does have a strong family history of cardiac disease with her father having his first heart attack at age 57 and followed by CABG and placement of a pacemaker but he is still alive and fairly healthy at age 90. She does not smoke, drinks only occasionally, no drug history, active and healthy with good family support. Hospital Course Becky Woo is an otherwise very healthy 70-year-old woman who presented yesterday to [facility] in [place] with chest pain that it started 9 PM the night before lasted all night with nausea. She describes the pain as an aching in the lower part of her sternum that radiates to her neck on both sides. It was not relieved with nitroglycerin given by EMS but was relieved with fentanyl. Chest pain with acute NSTEMI, present on admission. resolved EKG at [facility] revealed borderline sloping ST depressions in the lateral leads V5 and 6, EKG here is sinus bradycardia with no ST changes -Cardiology consult is much appreciated and echocardiogram is already complete. Per Dr. Pandya's recommendations the patient will be scheduled for cardiac catheterization on Saturday as this is nonemergent -Echocardiogram:Normal sinus rhythm. Normal LV size, wall thickness, wall motion and LV systolic function. EF is 60-65%. Stage I diastolic dysfunction. No valvular abnormalities. Compared to prior study 06/17/2013 no changes have occurred. -Nitroglycerin caused hypotension and headache -Serial troponins trended down -Cardiac And drip per protocol until stopped before catheterization -Aspirin 81 mg given daily -Morphine 5 mg IV when necessary for chest pain -Atorvastatin 40 mg daily Cardiac Vasospasm, present on admission, resolved -tendency found during cardiac catheterization -per cardiology patient placed on Amlodipine 5mg daily Chronic neck pain, present on admission. Intermittent -Patient treats that at home with ibuprofen, every third day she reports. We did not make NSAIDs available while patient was on heparin drip. -Tylenol available every 4 hours as needed Hyperlipidemia, status unknown, other evaluation -As above, the patient stopped taking her statin medication 3 weeks ago on the advice of her doctor who apparently thought she might be ready to not be on that medication any longer -Lipid panel shows total cholesterol of 286 and LDL 173 -Atorvastatin 40mg ordered per cardiac protocol PRN medications available for nausea, heartburn, constipation: Ondansetron, Maalox, Senna, Miralax Exam Vital Signs (Last) Date Time Temp Pulse Resp B/P Pulse Ox O2 Delivery O2 Flow Rate FiO2 07/16/16 11:17 36.5 65 18 127/71 97 Room Air Exam General: Alert, Oriented X3, Cooperative, No Acute Distress Head: Normocephalic, atraumatic Eyes: PERRLA, EOMI. ENT: Mucous Membranes Moist/[place] Chest & Lungs: Clear to auscultation bilaterally with no crackles, wheezes, or rhonchi. Cardiovascular: Regular Rate/Rhythm, Normal S1, Normal S2, No Murmurs/Rubs/ Gallops Abdomen: Non-tender, Non-distended, No masses, Normoactive bowel tones, Soft Extremities: No cyanosis/clubbing/edema bilaterally Neurological: Grossly Neurologically Intact Test 07/14/16 10:50 07/14/16 17:00 07/15/16 04:00 07/16/16 03:40 Magnesium Level 2.1mg/dL (1.6-2.6) Hold Urine Received (Received) Sodium Level 138mEq/L (134-144) Potassium Level 4.1mEq/L (3.5-5.2) Chloride Level 99mEq/L (97-108) Carbon Dioxide Level 27mmol/L (18-29) Blood Urea Nitrogen 12mg/dL (8-27) Creatinine 0.57mg/dL (0.57-1.00) Estimat Glomerular Filtration Rate 151mL/min (>59) Glucose Level 121mg/dL (60-99) Calcium Level 9.6mg/dL (8.5-10.1) Total Bilirubin 0.8mg/dL (0.0-1.2) Direct Bilirubin 0.2mg/dL (0.0-0.3) Aspartate Amino Transf (AST/SGOT) 35U/L (0-50) Alanine Aminotransferase (ALT/SGPT) 75U/L (0-32) Alkaline Phosphatase 122U/L (25-165) Troponin T 0.057ug/L (0.0-0.011) Total Protein 7.2g/dL (6.4-8.4) Albumin 4.3g/dL (3.4-5.0) Triglycerides Level 69mg/dL (0-149) Cholesterol Level 286mg/dL (100-199) LDL Cholesterol, Calculated 173.200mg/dL (0-99) VLDL Cholesterol 13.800mg/dL HDL Cholesterol 99mg/dL (>39) Cholesterol/HDL Ratio 2.89 (0.0-4.4) White Blood Count 6.4th/mm3 (3.8-10.1) Red Blood Count 4.87mil/mm3 (3.90-5.20) Hemoglobin 14.2g/dL (12.0-15.6) Hematocrit 43.1% (35.0-46.0) Mean Corpuscular Volume 88.5fL (81-100) Mean Corpuscular Hemoglobin 29.2pg (27.0-35.0) Mean Corpuscular Hemoglobin Concent 32.9% (32.0-37.0) Red Cell Distribution Width 14.2% (12.3-15.4) Platelet Count 304bil/L (150-400) Neutrophils (%) (Auto) 58.0% (40-74) Lymphocytes (%) (Auto) 31.0% (14-46) Monocytes (%) (Auto) 8.5% (4-12) Eosinophils (%) (Auto) 2.0% (0-5) Basophils (%) (Auto) 0.3% (0-3) Prothrombin Time 9.8sec (8.1-12.5) Prothromb Time International Ratio 0.92ratio Activated Partial Thromboplast Time 26.7sec (22.8-33.0) Discharge Medications Discharge Medications Amlodipine (Amlodipine) 5 Mg Tablet 5 MG PO DAILY Prescribed by: JOE MELISSA DO Aspirin (Aspirin) 81 Mg Tablet 81 MG PO DAILY Prescribed by: JOE MELISSA DO Atorvastatin (Lipitor) 40 Mg Tablet 40 MG PO DAILY Prescribed by: JOE MELISSA DO As needed Ibuprofen (Ibuprofen) 400 Mg Tablet 400 MG PO QID PRN PRN For Pain (Reported) Naproxen Sodium (Aleve) 220 Mg Capsule 220 MG PO PRN For Pain (Reported) Additional med instructions Daily Medications: Aspirin 81mg PO daily Lipitor 40mg PO daily Amlodipine 40mg PO daily Followup Plan Disposition: Home Follow-up plan Cardiology in one month, Dr Pandya. Follow-up the primary care this week Discharge Diet: Heart Healthy Discharge Activity: No restrictions Patient Instructions Your medications on discharge from Dr Dave, the shells inspector are: Aspirin 81mg PO daily Lipitor 40mg PO daily Amlodipine 40mg PO daily The aspirin is to avoid thromboembolism, Lipitor lowers cholesterol and stabilizes any atherosclerotic plaques that are already present so they don't break off to form clots, Amlodipine will reduce the chance of vasospasm which may have been the main cause of your chest pain and help prevent headaches. Eat a heart healthy diet, exercise daily, and follow up with Dr Pandya in one month. See Cande Dee, the nurse you have been seeing, next week. Follow-up Provider: Horace Amin MD Follow-up with PCP in: 1 week Time spent 35 min Attending Statement The patient was seen and examined together with Resident/House-staff on 07/16/16 and I agree with the history, exam and plan as outlined in the note above. copies to: Horace Amin MD, Alan C DO July 16, 2016 20:16 Sg [place] July 20, 2016 16:38
== END 2016-07-16 14:37 | disposition home or self-care (01) | DRG 282 ==
LOC: PCC 08:43
PROVIDERS: ADMIT Hospitalist; ATTEND Hospitalist
PROC: B211YZZ Fluoroscopy of Multiple Coronary Arteries using Other Contrast (ICD-10-PCS; principal; 2016-07-16)
PROC: 4A023N7 Measurement of Cardiac Sampling and Pressure, Left Heart, Percutaneous Approach (ICD-10-PCS; 2016-07-16)
PROC: B215YZZ Fluoroscopy of Left Heart using Other Contrast (ICD-10-PCS; 2016-07-16)
PROC: 3E083GC Introduction of Other Therapeutic Substance into Heart, Percutaneous Approach (ICD-10-PCS; 2016-07-16)
DX: I21.4 Non-ST elevation (NSTEMI) myocardial infarction (principal); E78.5 Hyperlipidemia, unspecified; R51 Headache; M54.2 Cervicalgia